=== PATIENT | male | born 2000 | race Caucasian/White ===

== ENCOUNTER 2024-02-01 21:47 | Inpatient (IN) | payer OTHER ==
[~2024-02-01] VITALS: Ht 175.3 cm; Wt 76.4 kg
[2024-02-02 00:54] LABS: BASO % 0.4 % (0.0-1.0); EOS # 0.5 10^3/uL (0.0-0.5); EOS % 4.1 % (0.0-3.0); HEMATOCRIT 44.3 % (42.0-52.0); HEMOGLOBIN 15.4 g/dl (13.5-17.5); LYMPH # 4.9 10^3/uL (1.5-5.0); LYMPH % 43.8 % (24.0-44.0); MEAN CORPUSCULAR HEMOGLOBIN 29.6 pg (27.0-33.0); MEAN CORPUSCULAR HGB CONC 34.8 g/dl (32.0-36.5); MONO # 0.5 10^3/uL (0.0-0.8); MONO % 4.7 % (2.0-8.0); NEUTROPHILS # 5.3 10^3/uL (1.5-8.5); NEUTROPHILS % 46.8 % (36.0-66.0); PLATELET COUNT, AUTOMATED 258 10^3/uL (150-450); RED BLOOD COUNT 5.21 10^6/uL (4.30-6.10); WHITE BLOOD COUNT 11.3 10^3/uL (4.0-10.0)
[2024-02-02 01:19] LABS: BLOOD UREA NITROGEN 15 MG/DL (9-23); CALCIUM LEVEL 9.5 MG/DL (8.5-10.1); CARBON DIOXIDE LEVEL 28 MMOL/L (20-31); CHLORIDE LEVEL 104 MMOL/L (98-107); CK-MB VALUE MASS 1.1 NG/ML (<3.6); CPK CREATINE PHOSPHOKINASE 175 U/L (46-171); CREATININE FOR GFR 0.98 MG/DL (0.70-1.30); GLOMERULAR FILTRATION RATE > 60.0 (>60); GLUCOSE, FASTING 86 MG/DL (60-100); MB/CK RELATIVE INDEX 0.62 (< OR =4); SODIUM LEVEL 139 MMOL/L (136-145)
[2024-02-02 02:17] LABS: CK-MB VALUE MASS 1.1 NG/ML (<3.6)
[2024-02-02 02:28] LABS: MB/CK RELATIVE INDEX 0.64 (< OR =4)
[2024-02-02] MEDS ORDERED: ISOVUE-370 76% 100ML VIAL As Ordered ONE (02:50)
[2024-02-02] MEDS ORDERED: VITA-176 PO (03:32)
[2024-02-02] MEDS ORDERED: ASCO250T16 PO (03:32)
[2024-02-02] MEDS ORDERED: HOME MED LIST COMPLETE! XX SCH (03:35)
[2024-02-02] MEDS ORDERED: ACETAMINOPHEN TAB 650MG DOSE (2X325MG) PO PRN (04:25)
[2024-02-02] MEDS ORDERED: MOM 30ML SUSPENSION UDC PO PRN (04:25)
[2024-02-02 05:32] VITALS: BP 121/77; TEMP 98; O2SAT 100
[2024-02-02 06:06] LABS: HEMATOCRIT 43.3 % (42.0-52.0); HEMOGLOBIN 15.1 g/dl (13.5-17.5); MEAN CORPUSCULAR HEMOGLOBIN 29.9 pg (27.0-33.0); MEAN CORPUSCULAR HGB CONC 34.9 g/dl (32.0-36.5); MEAN CORPUSCULAR VOLUME 85.7 fl (80.0-96.0); PLATELET COUNT, AUTOMATED 239 10^3/uL (150-450); RED BLOOD COUNT 5.05 10^6/uL (4.30-6.10)
[2024-02-02 06:36] LABS: ALBUMIN 4.3 G/DL (3.2-5.2); ALKALINE PHOSPHATASE 123 U/L (46-116); ALT/SGPT 17 U/L (7.0-40); AST/SGOT 17 U/L (<34); BILIRUBIN,TOTAL 1.4 MG/DL (0.3-1.2); BLOOD UREA NITROGEN 13 MG/DL (9-23); CALCIUM LEVEL 9.3 MG/DL (8.5-10.1); CARBON DIOXIDE LEVEL 28 MMOL/L (20-31); CHLORIDE LEVEL 106 MMOL/L (98-107); CREATININE FOR GFR 0.89 MG/DL (0.70-1.30); GLOMERULAR FILTRATION RATE > 60.0 (>60); GLUCOSE, FASTING 86 MG/DL (60-100); SODIUM LEVEL 140 MMOL/L (136-145); TOTAL PROTEIN 7.3 G/DL (5.7-8.2)
[2024-02-02 07:39] VITALS: BP 117/56; TEMP 97.3; O2SAT 100
[2024-02-02] MEDS ORDERED: E-Z-GAS II EFFERVESCENT PACKET (SODIUM BICARB./CITRIC ACID/SIMETHICONE) As Ordered ONE (09:50)
[2024-02-02] MEDS ORDERED: E-Z-PAQUE 96% w/w SUSP 176GM BTL As Ordered ONE (09:50)
[2024-02-02] MEDS ORDERED: E-Z-HD 98% w/w 340GM SUSP BTL As Ordered ONE (09:50)
[2024-02-02 11:42] VITALS: BP 117/64; TEMP 97.1; O2SAT 98
[2024-02-02 12:45] LABS: LIPASE 27 U/L (12-53)
[2024-02-02 12:47] LABS: AMYLASE 84 U/L (30-118)
[2024-02-02] MEDS ORDERED: NITROGLYCERIN 0.4MG SUBL TABLET SL PRN (13:30)
[2024-02-02 14:16] LABS: CK-MB VALUE MASS < 1.0 NG/ML (<3.6); CPK CREATINE PHOSPHOKINASE 123 U/L (46-171); MB/CK RELATIVE INDEX 0.81 (< OR =4)
[2024-02-02] MEDS: PANTOPRAZOLE 40MG VIAL IV ONE (14:58)
[2024-02-02 15:47] VITALS: BP 113/55; TEMP 97.3; O2SAT 98
[2024-02-02] MEDS ORDERED: SUCRALFATE 1 GM TAB PO SCH (17:30)
[2024-02-02] MEDS: SUCRALFATE SUSP 1GM/10ML UD PO SCH (17:36)
[2024-02-02 19:39] VITALS: BP 126/61; TEMP 97.1; O2SAT 99
[2024-02-02 23:00] VITALS: BP 114/57; TEMP 97.5; O2SAT 98
[2024-02-03 03:30] VITALS: BP 108/59; TEMP 97; O2SAT 100
[2024-02-03 04:00] VITALS: BP 108/59; O2SAT 100
[2024-02-03 04:14] LABS: AMPHETAMINES LEVEL URINE NEGATIVE (NEGATIVE); BARBITURATES URINE NEGATIVE (NEGATIVE); BENZODIAZEPINES URINE NEGATIVE (NEGATIVE); CANNABINOIDS URINE NEGATIVE (NEGATIVE); COCAINE METABOLITE URINE NEGATIVE (NEGATIVE); METHADONE URINE NEGATIVE (NEGATIVE); OPIATES URINE NEGATIVE (NEGATIVE); PHENCYCLIDINE URINE NEGATIVE (NEGATIVE)
[2024-02-03 07:09] LABS: LIPASE 33 U/L (12-53)
[2024-02-03 07:11] LABS: ALBUMIN 4.2 G/DL (3.2-5.2); ALKALINE PHOSPHATASE 121 U/L (46-116); ALT/SGPT 17 U/L (7.0-40); AST/SGOT 11 U/L (<34); BILIRUBIN,TOTAL 1.8 MG/DL (0.3-1.2); BLOOD UREA NITROGEN 15 MG/DL (9-23); CALCIUM LEVEL 9.6 MG/DL (8.5-10.1); CARBON DIOXIDE LEVEL 29 MMOL/L (20-31); CHLORIDE LEVEL 106 MMOL/L (98-107); CREATININE FOR GFR 0.83 MG/DL (0.70-1.30); GLOMERULAR FILTRATION RATE > 60.0 (>60); GLUCOSE, FASTING 86 MG/DL (60-100); POTASSIUM SERUM 4.6 MMOL/L (3.5-5.1); SODIUM LEVEL 142 MMOL/L (136-145); TOTAL PROTEIN 7.2 G/DL (5.7-8.2)
[2024-02-03 08:04] VITALS: BP 118/56; TEMP 97.5; O2SAT 97
[2024-02-03] MEDS ORDERED: SUCR1ORA PO (08:31)
[2024-02-03] MEDS ORDERED: PANT40TA29 PO (08:31)
[2024-02-03] MEDS: PANTOPRAZOLE 40MG TAB (PROTONIX) PO SCH (09:00)
[2024-02-03 11:59] VITALS: BP 114/57; TEMP 97.3; O2SAT 98
== END 2024-02-03 12:49 | disposition home or self-care (01) | DRG 313 ==
LOC: M ED 21:47 → M ED INP 02-02 04:24 → M PCU 02-02 05:25
PROVIDERS: ADMIT Internal Medicine; ATTEND Internal Medicine
PROC: B246ZZZ Ultrasonography of Right and Left Heart (ICD-10-PCS; principal; 2024-02-03)
DX: R07.89 Other chest pain (principal); R13.10 Dysphagia, unspecified; E80.6 Other disorders of bilirubin metabolism; F17.290 Nicotine dependence, other tobacco product, uncomplicated; Z79.899 Other long term (current) drug therapy; Z87.442 Personal history of urinary calculi